=== PATIENT | male | born 1990 | race Hispanic/Latino ===

== ENCOUNTER 2018-05-19 20:41 | Emergency (ER) | payer MEDICAID ==
[2018-05-19 20:45] VITALS: PULSE 91; TEMP 97.9; O2SAT 98
[2018-05-19] MEDS ORDERED: diaZEpam 10 mg/2 ml Inj IVP ONE (21:30)
--- NOTE | 2018-05-19 21:42 | ED PDOC ---
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 Pt indicated that his jaw slips out from time to time and requires to be reset. At the presetnation, his jaw is in the closed position forcing difficulty in eatting and speaking. Pt is breathing with no difficulty nd is not in respiratory distress. Pt indictes he is also slightly nauseas without diarrhea or vomiting Past Medical History Reviewed: Historical Data, Nursing Documentation, Vital Signs Vital Signs: Last Vital Signs Temp 97.9 F 05/19/18 20:43 Pulse 91 H 05/19/18 20:43 Resp 18 05/19/18 20:43 BP 130/85 05/19/18 20:43 Pulse Ox 98 05/19/18 20:43 - Family History Family History: States: Unknown Family Hx - Allergies Allergies/Adverse Reactions: Allergies Allergy/AdvReac Type Severity Reaction Status Date / Time No Known Allergies Allergy Verified 05/19/18 20:43 Review of Systems ROS Statement: Except As Marked, All Systems Reviewed And Found Negative ENT: Positive for: Other (jaw pain and dislocation) Physical Exam - Reviewed Nursing Documentation Reviewed: Yes Vital Signs Reviewed: Yes - Physical Exam Appears: Positive for: No Acute Distress, Uncomfortable. Negative for: Non- toxic Head Exam: Positive for: ATRAUMATIC, NORMAL INSPECTION Skin: Positive for: Normal Color, Warm, Dry. Negative for: Diaphoresis, Pallor, Rash Eye Exam: Positive for: Normal appearance ENT: Positive for: Other (Pt jaw is positioned in the closed position without an ability to move due to chronic TMJ) Neck: Positive for: Normal, Painless ROM, Supple. 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 He has full ROM and functionality and was urged to return to the ED if symptoms return. No medicatoin provided Disposition - Clinical Impression Clinical Impression: Dislocation, jaw closed - Patient ED Disposition Is Patient to be Admitted: No Counseled Patient/Family Regarding: Diagnosis, Need For Followup - Disposition Disposition: Routine/Home Disposition Time: 21:53 Condition: IMPROVED Instructions: Dislocated Jaw, Dislocated Jaw (DC) Forms: [employer] ([place])
[2018-05-19 22:02] VITALS: BP 124/72; RESP 16
== END 2018-05-19 22:02 | disposition home or self-care (01) ==
LOC: H.ER 20:41
DX: S03.02XA Dislocation of jaw, left side, initial encounter (principal)